=== PATIENT | female | born 1955 | race Caucasian/White ===

== ENCOUNTER → 2017-04-30 | Outpatient (CLI) | payer MEDICARE ==
[~2017-04-30] MED LIST: AMBIEN CR12.5 MG PO; AMITIZA24 MCG PO; BENADRYL 50MG C50 MG PO; CALCIUM CITRAT950 MG; CENTRUM SILVER1 TA1 PO; COLACE 100100 MG/CAP PO; CYANOCOBAL1000 MCG/1 IM; DOMPERIDONE PO; DULCOLAX TAB5 MG PO; FLEXERIL 1010 MG/TAB PO; FOLIC ACID 11 MG/TA1 PO; FOLIC ACID PO; FOLIC ACID1 MG PO; GARLIC; GINKO; LEVOXYL0.075 MG PO; LIPITOR 40MG TA40 MG PO; MIRALAX 17GM PK1 PKT PO; MIRALAX PA17 GM/Dose PO; MORPHINE 1515 MG/TAB PO; MS CONTIN 115 MG/TAB PO; MS CONTIN100 MG PO; MULTIPLE VITAMI1 CAP PO; OSCAL W/VIT D250 MG PO; PHENERGAN 25 TA25 MG PO; PREMARIN 0.60.625 MG PO; PRILOSEC 20MG20 MG PO; PROTONIX 40MG T40 MG PO; RANITIDINE HYD300 MG PO; REFRESH OPTIVE10 M2 OP; SENOKOT TABLET1 EA PO; SINGULAIR 110 MG/TAB PO; SYNTHROID0.088 MG/T PO; VITAMIN C1 TAB PO; VITAMIN D 50,1.25 MG PO; [UNRECOGNIZED DRUG - OTHER]
== END ==
LOC: EUO 12:29
DX: Z01.89 Encounter for other specified special examinations (principal)

== ENCOUNTER 2017-05-30 10:28 | Outpatient (RCR) | payer MEDICARE ==
[2017-03-25 16:20] VITALS: BP 126/51; PULSE 74; TEMP 98
[2017-04-30 13:16] VITALS: BP 127/71; PULSE 73; TEMP 97.3
[~2017-05-30] VITALS: Ht 167.6 cm; Wt 63.6 kg
[~2017-05-30 10:28] MED LIST changes: -CYANOCOBAL1000 MCG/1 IM; -LIPITOR 40MG TA40 MG PO; -MORPHINE 1515 MG/TAB PO; -MULTIPLE VITAMI1 CAP PO; -REFRESH OPTIVE10 M2 OP; -SINGULAIR 110 MG/TAB PO; -VITAMIN D 50,1.25 MG PO
[2017-05-30 11:03] VITALS: BP 117/61; PULSE 69; TEMP 97.9
== END 2017-06-23 ==
LOC: EUO
DX: G43.909 Migraine, unspecified, not intractable, without status migrainosus (principal)
CPT/HCPCS: J2175; J2550

== ENCOUNTER 2017-05-30 11:00 | Outpatient (RCR) | payer MEDICARE ==
[~2017-05-30] VITALS: Ht 167.6 cm; Wt 65.8 kg
[2017-07-15 15:26] VITALS: BP 141/64; PULSE 69; TEMP 98
[2017-07-15] MEDS ORDERED: LIPITOR 40MG TA40 MG PO (16:04)
[2017-07-15] MEDS ORDERED: REFRESH OPTIVE10 M2 OP (16:06)
[2017-07-15] MEDS ORDERED: CYANOCOBAL1000 MCG/1 IM (16:07)
[2017-07-15] MEDS ORDERED: SINGULAIR 110 MG/TAB PO (16:09)
[2017-07-15] MEDS ORDERED: PHENERGAN 25 TA25 MG PO (16:10)
[2017-07-15] MEDS ORDERED: VITAMIN D 50,1.25 MG PO (16:11)
[2017-07-15] MEDS ORDERED: MORPHINE 1515 MG/TAB PO (16:11)
[2017-07-15] MEDS ORDERED: MS CONTIN 115 MG/TAB PO (16:12)
[2017-07-15] MEDS ORDERED: MULTIPLE VITAMI1 CAP PO (16:12)
== END 2017-07-15 17:09 | disposition home or self-care (01) ==
LOC: EUO 06-24 14:30
DX: G43.709 Chronic migraine without aura, not intractable, without status migrainosus (principal); Z79.899 Other long term (current) drug therapy
CPT/HCPCS: J2175; J2550

== ENCOUNTER → 2018-02-25 | Outpatient (CLI) | payer MEDICARE ==
[~2018-02-25] VITALS: Ht 167.6 cm; Wt 63.6 kg
[~2018-02-25] MED LIST changes: +CYANOCOBAL1000 MCG/1 IM; +LIPITOR 40MG TA40 MG PO; +MORPHINE 1515 MG/TAB PO; +MULTIPLE VITAMI1 CAP PO; +REFRESH OPTIVE10 M2 OP; +SINGULAIR 110 MG/TAB PO; +VITAMIN D 50,1.25 MG PO
[2018-02-25 10:31] VITALS: BP 109/56; PULSE 72; TEMP 98.6
== END ==
LOC: EUO 10:14
DX: G43.009 Migraine without aura, not intractable, without status migrainosus (principal); Z79.899 Other long term (current) drug therapy
CPT/HCPCS: J2175; J2550

== ENCOUNTER 2018-04-04 14:07 | Outpatient (RCR) | payer MEDICARE, OTHER ==
[~2018-04-04] VITALS: Ht 167.6 cm; Wt 65.3 kg
[2018-04-04 14:46] VITALS: BP 124/70; PULSE 74; TEMP 98.3
== END 2018-04-04 15:11 | disposition home or self-care (01) ==
LOC: EUO 14:07
DX: G43.009 Migraine without aura, not intractable, without status migrainosus (principal); Z79.899 Other long term (current) drug therapy
CPT/HCPCS: J2175; J2550

== ENCOUNTER 2018-06-16 14:51 | Outpatient (CLI) | payer MEDICARE, OTHER ==
[~2018-06-16] VITALS: Ht 167.6 cm; Wt 64.5 kg
[2018-06-16 15:46] VITALS: BP 122/72; PULSE 86; TEMP 98.2
== END 2018-06-16 15:51 | disposition home or self-care (01) ==
LOC: EUO 14:51
DX: G43.909 Migraine, unspecified, not intractable, without status migrainosus (principal)
CPT/HCPCS: J2175; J2550